=== PATIENT | female | born 1990 | race Two or more races ===

== ENCOUNTER 2025-01-24 02:18 | Emergency (ER) | payer MEDICAID, OTHER ==
[~2025-01-24] VITALS: Ht 175.3 cm; Wt 103.4 kg
[2025-01-24 02:23] VITALS: TEMP 99
--- NOTE | 2025-01-24 03:17 | ED.PDOC ---
Psychiatric HPI Comments This is a 34 year-old female who presents to the ED with a chief complaint of laceration to left forearm after cutting herself with scissors minutes ago. Patient reports recent argument with significant other. Patient states she attempted to relieve her stress/anger by aggressively scratching both forearms, but felt no relief. Patient cut herself with a pair of scissors in attempt to alleviate mental distress. Patient treated the laceration with water, Neosporin, and bandages for proper care. Patient denies being UTD with Tetanus vaccine. Patient denies current SI or further associated symptoms of auditory hallucinations, visual hallucinations, or homicidal ideation. REVIEW OF SYSTEMS: No fever, no chills, or fatigue HEENT: No sore throat, no earache, no congestion, no neck pain. Cardiac: No chest pain. No palpitations. Lungs: No shortness of breath, no cough. GI: No nausea, no vomiting, no diarrhea, no constipation, no abdominal pain : No dysuria, frequency, or urgency. No hematuria. Musculoskeletal: No joint pain , no joint swelling, no extremity edema. Skin: (+) Laceration to Left Forearm, No rash, no itching. Neuro: No headache, no dizziness, no weakness PHYSICAL EXAM: General: Awake, alert and oriented. No acute distress. Skin: (+) 6cm laceration to L forearm, Skin in warm, dry HEENT: The head is normocephalic and atraumatic. Conjunctivae are clear without exudates or hemorrhage. Sclera is non-icteric. Neck: Normal range of motion. No JVD. Cardiac: Regular rate Respiratory: No signs of respiratory distress. No Stridor. Extremities: Upper and lower extremities are atraumatic in appearance without deformity. Neurological: The patient is awake, alert and oriented to person, place, and time with normal speech. Speech is clear. There is no facial asymmetry. Psychiatric: Appropriate mood and affect. Good judgement and insight. Chief Complaint: Suicidal Time Seen by MD: 03:02 Reviewed Notes: Medications, Allergies Information Source: Patient Mode of Arrival: Ambulatory Severity of Pain: Moderate Severity of Mental Status: Moderate Severity of Symptoms: Moderate Timing: Minutes Attempt: Laceration Ingestion: Intentional Current substance abuse: None Location: Left, Arm Location of pain or injury: Forearm Associated signs and symptoms: Depression, Anxiety Past Medical History PAST MEDICAL HISTORY: Denies Surgical History: Denies all surgeries RESIDENTIAL DRIVER History: No Pertinent RESIDENTIAL DRIVER History Family History Family History: Reviewed,noncontributory to illness, No family hx of Cancer, No family hx of DM, No family hx of Heart kleber, No family hx of HTN, No family hx ofKidney kleber, No family hx of Liver kleber, No family hx of Lung kleber, No family hx of Stroke Social History Smoker: Non-Smoker Alcohol: Denies ETOH Use Drugs: Denies Drug Use Lives In: Home Was a procedure done? Was a procedure done?: Yes Sedation Sedation?: No Laceration Repair : Location L Forearm Length 6cm Anesthetic: Lidocaine (1% ), Without epi Laceration Repair Prep: Saline Laceration Repair Wound Comple: epidermis/dermis repair Laceration Repair: Number of sutures (5), Layers Closed, Skin, Size (3-0), Simple, Non-adherent gauze Informed consent obtained: Yes Risks, benefits, and alternati: Yes Psych Differential Dx Psych. Differential Dx: Anxiety, Depression, Hopeless, Schizoprenia, Suicidal X-Ray, Labs, Meds, VS Vital Signs Date Time Temp Pulse Resp B/P (MAP) Pulse Ox O2 Delivery O2 Flow Rate FiO2 01/24/25 05:00 Room Air* 0 21 01/24/25 04:59 88 16 128/81 (97) 100 01/24/25 02:23 99.0 95 16 122/77 99 99.0 Current Medications Medications (Trade) Dose Ordered Sig/Merry Route Start Time Stop Time Status Last Admin Diphtheria/ Tetanus/Acell Pertussis (Boostrix T-Dap) 0.5 ml ONCE ONCE IM 01/24/25 04:00 01/24/25 04:13 DC 01/24/25 04:59 Time of 1ST Reevaluation: 03:56 Reevaluation 1ST: Unchanged Patient Education/Counseling: Need For Follow Up Family Education/Counseling: No Family Present Departure 1 Departure Time of Disposition: 03:53 Impression: Primary Impression: Laceration Additional Impression: Deliberate self-cutting Disposition: 01 HOME / SELF CARE / HOMELESS Condition: Stable Additional Instructions: ED DISCHARGE INSTRUCTIONS Instructions: Please read all instructions provided in this packet carefully. Stitches need to be removed within 7-10 days. Return to the ED or follow up with your primary care provider for a wound check within 3 days. Although you have been discharged from the Emergency Department, this does not mean that you have a "clean bill of health". No definitive diagnosis for your symptoms has been made today. It is possible that you are in the process of developing a serious illness. This is why you must return to the ED without fail if any new or worsening symptoms (especially if your symptoms include thoughts of wanting to harm yourself or others, chest pain, trouble breathing, abdominal pain, fever, headache, confusion, trouble seeing, or trouble walking) It is also very important that you see a primary care provider (PCP) within the next 3-5 days to follow up. If you are unable to get an appointment, return to the ED for re-evaluation. SELF HARM EDUCATION: Where to get help 24 hours a day, 7 days a week Call the Suicide and Crisis Lifeline at 988. Call 6-172-794-CFJU ( ). Text HOME to 851250 to access the Crisis Text Line. Consider saving these numbers in your phone. Go to [employer] for more information or to chat online. How can you care for yourself? Here are some ways you can care for yourself if you self-injure. Find a counselor. Look for someone who makes you feel safe and welcome. You can ask your doctor for a referral. Make a plan to keep yourself safe. A health professional such as your doctor or counselor can help you. Build a support system. Look for a self-injury support group. Ask for help from trusted friends, family, and community members. Practice healthy ways to manage your emotions. Use these skills when you have big feelings, anxiety, and stress. A counselor can help you find what works for you. For example, together you may learn that yoga, deep breathing, or certain music calms you. Taking Care of Your Stitches or [place]: Overview Your wound will need care and observation. After the stitches or anmol are put in, the area may be covered with a thin layer of ointment and covered with a nonstick bandage. Your doctor will give you instructions on how to care for your stitches or anmol. Be sure to follow those instructions. If you did not get instructions, follow this general advice. Keep the wound bandaged and dry for the first day. Check with your doctor about how long you need to keep your wound dry. In some cases the bandage can be removed after 24 to 48 hours, and the wound can then be gently washed to remove the crust. Do not scrub or soak the wound during the first 48 hours. After the first day, wash around the wound with clean water 2 times a day. Don't use hydrogen peroxide or alcohol, which can slow healing. Cover the wound with petroleum jelly and a nonstick bandage if needed. Use a thin layer of petroleum jelly, such as Vaseline. Apply more petroleum jelly and replace the bandage as needed. Your cut may not need a bandage if it's not likely to get dirty, it's not draining, and it's in an area where clothing will not rub it. If you use a bandage, change it every 24 hours and anytime it gets wet or very dirty. Check your wound every day for signs of infection. It's normal for stitches or anmol to cause a small amount of skin redness and swelling where the stitch or staple enters the skin. Your wound may itch or feel irritated. Your doctor will tell you when to have your stitches or anmol removed. Discharged With: Self Comments Patient is denying suicidal ideation. Laceration repaired in the emergency department by [facility] Patient well-appearing, nontoxic. Advised prompt follow-up with PCP, return to the ED with any new, worsening or concerning symptoms. Critical Care Note Critical Care Time?: No Stability Stability form required: No Heart Score Heart Score: Heart Score Response (Comments) Value History N/A 0 EKG N/A 0 Age N/A 0 Risk Factors N/A 0 Troponin N/A 0 Total 0 I personally scribed for SAM EVERETT MD ([email or web address]) on 01/24/25 at 03:17. Electronically submitted by Amalia Conrad ([email or web address]). I personally scribed for SAM EVERETT MD ([email or web address]) on 01/24/25 at 03:20. Electronically submitted by Amalia Conrad ([email or web address]). I personally scribed for SAM EVERETT MD ([email or web address]) on 01/24/25 at 03:50. Electronically submitted by Amalia Conrad ([employer]). SAM EVERETT MD Jan 24, 2025 03:17
[2025-01-24 04:59] VITALS: BP 128/81; PULSE 88; RESP 16; O2SAT 100
[2025-01-24] MEDS: TETANUS-DIPTH-ACEL PERTUSSIS 0.5ML SYR Tdap IM ONE (04:59)
== END 2025-01-24 05:00 | disposition home or self-care (01) ==
LOC: ER 02:18
DX: S51.812A Laceration without foreign body of left forearm, initial encounter (principal); W27.2XXA Contact with scissors, initial encounter; Y93.89 Activity, other specified; Y92.89 Other specified places as the place of occurrence of the external cause; Y99.8 Other external cause status
CPT/HCPCS: 12002; 90471; 90715